=== PATIENT | male | born 1955 | race Caucasian/White ===

== ENCOUNTER 2018-06-04 19:05 | Emergency (ER) | payer OTHER, SELFPAY ==
[2018-06-04 19:06] VITALS: BP 156/86; PULSE 80; RESP 16; TEMP 36.3; O2SAT 98; BMI 27.6
[2018-06-04] MEDS: Tetracaine 0.5% Ophthalmic Bottle 1 DRP LEFT EYE (19:29)
[2018-06-04] MEDS: Fluorescein 1 MG STRIP 1 STRIP LEFT EYE (19:29)
--- NOTE | 2018-06-04 21:18 | ED.DCSUM_ITS ---
- ER Visit Summary Date of Service: 06/04/18 Chief Complaint: Foreign body sensation right eye History of Present Illness: The patient is a [address] Blanco. 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 He cannot describe the pain is 5 out of 10 severity. Is worsened by light. Is relieved by ibuprofen. He does have photophobia and mildly blurred vision. He does wear glasses. He states he has contacts but has not worn them for approximately 1 year. Physical Examination: Vitals: Stable. Afebrile. Right eye: Upper eyelid was everted for the exam there is no foreign material under it. He does have a metallic foreign body at approximately 10:00 on the cornea. There is a rust ring surrounding this. There is forcing dye uptake. No ulcer or Rick sign. There is diffuse conjunctival injection. General: Well-nourished and well-developed. Head: Normocephalic atraumatic. Neck: Supple, no lymphadenopathy. No JVD. Nontender. Cardiovascular: Regular rate and rhythm. No murmurs. Respiratory: No respiratory distress. Clear to auscultation bilaterally. Abdominal: Soft, nontender, nondistended, normal bowel sounds. No guarding, rebound, or peritoneal signs. Back: Nontender. Extremities: Nontender, no edema. Skin: Normal color, no rash. Neurologic: Alert and oriented ?3. Cranial nerves II through XII are intact. Normal strength and sensation. Psych: Normal affect. Emergency Department Course and Treatment: Patient had the metallic foreign body removed with a Q-tip that had been moistened with tetracaine. I discussed with him the options for removal of the rust ring. He would prefer to have an embroiderer hand to this. Treatment Plan: Patient be discharged with instructions to follow-up Dr. Mead within 1-2 days for removal of the rust ring. He will be placed on erythromycin ointment in the interim. Return to the emergency department for any worsening symptoms. Disposition: To home in improved and stable condition. Impression: 1. Metallic foreign body right eye, removed. 2. Retained rust ring. This note was generated with [employer] software. It may contain incorrect words, spelling, and punctuation that were not noted in review of the chart prior to signing ED Disposition - Plan for ED Patient: Disposition: Home or Assisted Living Chief Complaint: Eye Problem Instructions: ED Foreign Body Cornea W Rust Ring Referrals: Jhonatan Mead MD [STAFF PHYSICIAN] - 1 Day for another exam
[2018-06-04] MEDS: Erythromycin Base 1 OPTH.TUBE 1 APPLIC RIGHT EYE (21:25)
== END 2018-06-04 21:26 | disposition home or self-care (01) ==
PROVIDERS: Emergency Provider Emergency Medicine; Family Provider Family Medicine; PCP Family Medicine
DX: T15.01XA Foreign body in cornea, right eye, initial encounter (principal)
CPT/HCPCS: 99282

== ENCOUNTER 2019-12-26 07:59 | Day surgery (SDC) | payer SELFPAY ==
[2019-12-10 08:50] VITALS: BMI 27.6
--- NOTE | 2019-12-10 10:10 | HP_ITS ---
Intake Vital Signs 12/10/19 BMI 27.6 12/10/19 Height 5 ft 11 in 12/10/19 Weight: 195 lb 12/10/19 BMI 27.1 12/10/19 BP 144/89 H 12/10/19 Blood Pressure Location Rt brachial 12/10/19 Position Sitting 12/10/19 Respiration 18 Intake Visit Reasons: Cscope Consult/Constipation Aerosol Line Operator Required: No Is patient in pain?: No Allergies No Known Allergies Allergy (Verified 12/10/19 08:49) Medications methylcellulose (with sugar) 1 tbsp PO DAILY 12/10/19 [History Confirmed 12/10/19] PFSH Family History Mother Heart disease Cancer lung Aunt Heart disease Uncle Heart disease Sister CVA (cerebral vascular accident) Social History (Updated 12/10/19 @ 10:[address] Adiel Ashby MD) Smoking Status: Never smoker alcohol intake: never HPI HPI HPI: CATE BAY, is a 64 M who presents to the office today for HPI HPI Surgical H&P: Yes HPI: CATE BAY, is a 64 M who presents to the office today for colonoscopy. The patient had a colonoscopy about 6 years ago and one polyp was noted in the ascending colon. The patient was recommended to repeat colonoscopy in 5 years. He does have chronic constipation. He is not having any blood in the stool or abdominal pain. ROS General General: No weight change or fatigue Cardio Cardiovascular: No murmur, pacemaker, heart disease, atrial fibrillation, high blood pressure, heart attack, heart stent, palpitations, shortness of breat with exertion or chest pain Psych Psychiatric: No depression or anxiety Resp Respiratory: No shortness of breath, No sleep apnea, No cough, No COPD, No asthma, No emphysema, No wheezing Gastro Gastrointestinal: No abdominal pain, No nausea or vomiting, No diarrhea, Yes constipation, No blood in stool, No acid reflux, No hemorrhoids, No ulcers, No gallbladder problem, No black,tarry stools Ashutosh Hematologic: No blood thinners Exam Const General: cooperative Orientation: alert, oriented x3 Resp Effort & Inspection: normal respiratory effort Auscultation: clear to auscultation bilaterally Cardio Rate: regular rate Rhythm: regular rhythm Heart Sounds: no murmurs GI Inspection: non-distended Palpation: soft, nontender Assessment & Plan Problems 1. History of colon polyps Z86.010 Plan The patient has a history of colon polyp in the ascending colon and was ordered to repeat colonoscopy in 5 years. He is 1 year overdue. Recommend colonoscopy. I explained endoscopy in detail to the patient. I explained the risks including but not limited to stroke or heart attack with anesthesia, perforation of the GI tract, bleeding, infection. I explained that any of these could necessitate further emergency surgery. The patient understands and all questions were answered sufficiently. The patient wishes to proceed with procedure. Adiel Ashby MD Pager: [facility] [address] [place] [address], [address] [place] [address] Office: Orders Orders: Colonoscopy Today Z86.010 Coding Level of Care Code Off vis,new,level 3 Diagnoses History of colon polyps Z86.010 12/10/19 1011 <Electronically signed by Adiel medina MD> Date _ Adiel Ashby MD I have re-examined the patient. There are no clinical changes since date of exam.
[2019-12-26 08:28] VITALS: BP 144/95; PULSE 80; RESP 16; TEMP 36.8; O2SAT 95; BMI 27.6
[2019-12-26] MEDS: Lactated Ringers 1,000 ML 100 ML IV (08:33)
--- NOTE | 2019-12-26 09:15 | OP.COLON_ITS ---
Patient Name: Dwayne Liu Procedure Date: 12/26/2019 8:36 AM Date of : 1955 Age: 64 Procedure: Colonoscopy Indications: Surveillance: Personal history of adenomatous polyps on last colonoscopy > 5 years ago Providers: Adiel Ashby MD Referring MD: Tin Ferreira Md Medicines: Monitored Anesthesia Care Patient Profile: This is a 64 year old male. Refer to note in patient chart for documentation of history and physical. Last Colonoscopy: several years ago. Complications: No immediate complications. Estimated blood loss: Minimal. Procedure: Pre-Anesthesia Assessment: - Prior to the procedure, a History and Physical was performed, and patient medications and allergies were reviewed. The patient's tolerance of previous anesthesia was also reviewed. The risks and benefits of the procedure and the sedation options and risks were discussed with the patient. All questions were answered, and informed consent was obtained. Prior Anticoagulants: The patient has taken no previous anticoagulant or antiplatelet agents. After reviewing the risks and benefits, the patient was deemed in satisfactory condition to undergo the procedure. After I obtained informed consent, the scope was passed under direct vision. Throughout the procedure, the patient's blood pressure, pulse, and oxygen saturations were monitored continuously. The pediatric colonoscope was introduced through the anus and advanced to the cecum, identified by appendiceal orifice and ileocecal valve. The colonoscopy was performed without difficulty. The patient tolerated the procedure well. The quality of the bowel preparation was good. Scope In: 8:51:53 AM Scope Withdrawal Time 0 hours 6 minutes 16 seconds Scope Out: 9:13:14 AM Total Procedure Duration Time 0 hours 21 minutes 21 seconds Findings: The entire examined colon appeared normal on direct and retroflexion views. Impression: - The entire examined colon is normal on direct and retroflexion views. - No specimens collected. Recommendation: - Discharge patient to home. - Resume previous diet. - Continue present medications. - Repeat colonoscopy in 10 years for screening purposes. Procedure Code(s): --- Professional --- 78057, Colonoscopy, flexible; diagnostic, including collection of specimen(s) by brushing or washing, when performed (separate procedure) Diagnosis Code(s): --- Professional --- Z86.010, Personal history of colonic polyps CPT copyright 2017 [employer]. All rights reserved. The codes documented in this report are preliminary and upon pool hall inspector review may be revised to meet current compliance requirements. Adiel Ashby MD 12/26/2019 9:15:31 AM This report has been signed electronically. Number of Addenda: 0 Note Initiated On: 12/26/2019 8:36 AM
--- NOTE | 2019-12-26 09:15 | OP.CCLET_ITS ---
12/26/2019 Tin Ferreira [address] [place] [address] Re : Colonoscopy procedure for Dwayne Liu Dear Dr. Ferreira This procedure was performed on Thursday, December 26, 2019. My impressions and recommendations are as follows: Impressions : - The entire examined colon is normal on direct and retroflexion views. - No specimens collected. Recommendations : - Discharge patient to home. - Resume previous diet. - Continue present medications. - Repeat colonoscopy in 10 years for screening purposes. My findings are described in the full procedure note, which is enclosed. If I can be of further assistance, please feel free to contact me at Doctor phone number(s): , Work: . Sincerely, Adiel Ashby MD 12/26/2019 9:15:31 AM This report has been signed electronically.
[2019-12-26 09:17] VITALS: BP 106/74; BP 144/95; PULSE 72; RESP 16; TEMP 36.2; O2SAT 95
[2019-12-26 09:25] VITALS: BP 113/70; BP 144/95; PULSE 70; RESP 16; O2SAT 97
[2019-12-26 09:30] VITALS: BP 108/83; BP 144/95; PULSE 69; RESP 16; O2SAT 97
[2019-12-26 09:35] VITALS: BP 125/91; BP 144/95; PULSE 70; RESP 16; TEMP 36.3; O2SAT 96
[2019-12-26 10:23] VITALS: BP 144/95
== END 2019-12-26 10:24 | disposition home or self-care (01) ==
LOC: EN 08:03 → AC 08:03
PROVIDERS: PCP Family Medicine; Referring Provider Family Medicine; Visit Provider Surgery
PROC: 0DJD8ZZ Inspection of Lower Intestinal Tract, Via Natural or Artificial Opening Endoscopic (ICD-10-PCS; CPT 45378; principal; 2019-12-26 08:55)
DX: Z12.11 Encounter for screening for malignant neoplasm of colon (principal); Z86.010 Personal history of colon polyps; K59.09 Other constipation
CPT/HCPCS: 45378; J7120; J2405

== ENCOUNTER 2020-09-24 20:02 | Emergency (ER) | payer SELFPAY ==
[2020-09-24 20:03] VITALS: BP 131/83; PULSE 73; RESP 18; TEMP 36.1; O2SAT 98; BMI 26.6
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
[2020-09-24 22:10] VITALS: BP 128/74; PULSE 74; RESP 16; O2SAT 97
== END 2020-09-24 22:10 | disposition home or self-care (01) ==
PROVIDERS: Emergency Provider Emergency Medicine; PCP Family Medicine
DX: S49.82XA Other specified injuries of left shoulder and upper arm, initial encounter (principal); Y93.55 Activity, bike riding
CPT/HCPCS: 73030; 99282

== ENCOUNTER → 2021-06-06 14:31 | Outpatient (CLI) | payer MEDICARE, SELFPAY ==
--- NOTE | 2021-06-06 14:34 | RAD_ITS ---
EXAM DESCRIPTION: PA and lateral CHEST CLINICAL HISTORY: 66 years Male, cough blood tinged cough blood tinged COMPARISON: None FINDINGS: The thorax is intact. The heart and mediastinum appear to be within normal limits. The lungs appear to be well areated without evidence of pneumonic consolidation or pleural effusion. RAD/Chest PA and Lateral IMPRESSION: Normal PA and lateral chest Electronically Signed: Polo Caputo DO at 15:04 EDT Tel , Service support ,
== END ==
PROVIDERS: PCP Family Medicine; Referring Provider Family Medicine; Visit Provider Family Medicine
DX: J01.90 Acute sinusitis, unspecified (principal)
CPT/HCPCS: 71046

== ENCOUNTER → 2022-08-15 | Outpatient (CLI) | payer MEDICARE, SELFPAY ==
[2022-08-15 10:26] LABS: Anion Gap 6 (5-15); BUN 18 mg/dL (7-18); BUN/Creat Ratio 20.8 RATIO (10-20); Chloride 109 mmol/L (98-107); Cholesterol 217 mg/dL (200); Creatinine, Serum 0.86 mg/dL (0.70-1.30); EST Glomerular Filtration Rate 94 mL/min (>60); Est Glom Filt Rate - Afr Amer 114 mL/min (>60); Glucose 91 mg/dL (74-106); High Density Lipoprotein 48 mg/dL; Sodium Level 142 mmol/L (136-145); Triglycerides 176 mg/dL
[2022-08-15 10:27] LABS: PSA,Total - Annual Screen 1.61 ng/mL (0.00-4.00); Very Low Density Lipoprotein 35 mg/dL (5-40)
== END | disposition home or self-care (01) ==
LOC: MFPLAB 09:06
PROVIDERS: PCP Family Medicine; Referring Provider Family Medicine; Visit Provider Family Medicine
DX: Z13.1 Encounter for screening for diabetes mellitus (principal); Z13.220 Encounter for screening for lipoid disorders; Z12.5 Encounter for screening for malignant neoplasm of prostate
CPT/HCPCS: 36415; 80048; 80061; 84153; G0103

== ENCOUNTER 2023-05-06 08:36 | Emergency (ER) | payer MEDICARE, SELFPAY ==
[2023-05-06 08:37] VITALS: BP 153/89; PULSE 84; RESP 14; TEMP 37.1; O2SAT 93; BMI 28.6
--- NOTE | 2023-05-06 09:04 | EX.ED.GUMALE ---
HPI History of Present Illness Chief Complaint: Complaint Detail of Chief Complaint: Difficulty urinating last couple days. No pain. Informant: patient Pain Onset: Days Context: Gradual Onset Timing: Intermittent Current Severity: Mild Maximum Severity: Mild Narrative Narrative: 68-year-old male no stated past medical history. No prior or bladder surgery. States last couple days had difficulty urinating. Denies pain. Denies dysuria. Denies gross blood. No fever. No abdominal pain. Just states he did not feel like he is emptying his bladder. Has trouble starting his stream. He has never had prostate issues in the past. He is able to urinate. H is more difficult. Prior similar symptoms: No Recent Illness/Hospitalization: No PFSH PFSH Medical History no medical history no medical history Home Medications docusate sodium 100 mg capsule 100 mg PO DAILY #20 caps 09/24/20 [Rx Last Taken Unknown] docusate sodium 100 mg capsule 100 mg PO DAILY #20 caps 09/24/20 [Rx Last Taken Unknown] ciprofloxacin HCl 500 mg tablet (Cipro) 500 mg PO BID 10 days #20 tabs 05/06/23 [Rx Last Taken Unknown] tamsulosin 0.4 mg capsule (Flomax) 0.4 mg PO DAILY 30 days #30 caps 05/06/23 [Rx Last Taken Unknown] Allergy/AdvReac Type Severity Reaction Status Date / Time No Known Allergies Allergy Verified 05/06/23 08:37 Family History Mother Heart disease Cancer lung Aunt Heart disease Uncle Heart disease Sister CVA (cerebral vascular accident) Social History Smoking Status: Never smoker alcohol intake: never ROS ROS ED ROS Narrative Difficulty urinating. Review of Systems ROS Unobtainable: Denies due to encephalopathy Constitutional Constitutional ED: Denies chills or fever(s) Eyes Eyes: Denies blurry vision ENT ENT ED: Denies ear pain Cardiovascular Cardiovascular: Denies chest pain Respiratory/Chest Respiratory/Chest: Denies cough or dyspnea Gastrointestinal Gastrointestinal: Denies abdominal pain, constipation, diarrhea, melena, nausea or vomiting Genitourinary Genitourinary ED: Reports urinary frequency; Denies dysuria or hematuria Musculoskeletal Musculoskeletal: Denies arthralgias Integumentary Denies abscess Psychiatric Psychiatric: Denies anxiety Endocrine Endocrinology: Denies polydipsia Hematologic/Lymphatic Hematologic/Lymphatic: Denies easy bleeding or easy bruising Allergic/Immunologic Allergic/Immunologic ED: Denies mouth swelling or tongue swelling EXAM Physical Exam Narrative Exam Narrative: 61-year-old male no acute distress. Vital signs stable afebrile. H EENT exam unremarkable. Neck nontender no lymphadenopathy. Lungs clear to auscultation bilaterally. Heart regular rhythm no murmur. Abdomen soft nontender, nondistended normal bowel sounds no peritoneal signs. No suprapubic tenderness. Extremities moves all 4. Nontender no edema. Back nontender. Neurologically is awake and alert with no focal motor deficits. Const Vital Signs: 05/06/23 08:37 Temperature 98.7 F Temperature Source Temporal Pulse Rate 84 Respiratory Rate 14 Blood Pressure 153/89 H Blood Pressure Mean 110 Pulse Ox 93 Oxygen Delivery Method Room Air Positive well nourished and well developed; Negative for obese, cachectic, contractures or unkempt General Appearance ED: well developed and NAD; Negative for unkempt, cachectic, contractures or pallor Nutritional Appearance: Negative for cachectic or obese HEENT Reports moist mucous membranes; Denies dry mucous membranes normocephalic and atraumatic; Negative for trauma or tenderness Mouth ED: No dry mucous membranes Mouth: No dry mucous membranes Eyes PERRL and EOMs intact bilaterally General Eye ED: Negative for pale conjunctiva, scleral icterus or other Neck no lymphadenopathy, supple and no JVD General: Negative for tenderness Resp normal respiratory effort and clear to auscultation bilaterally Effort and Inspection: Negative for retractions Auscultation: Negative for rales, rhonchi or wheezes Cardio regular rate, regular rhythm, S1 normal heart sound, S2 normal heart sound and no murmurs Rate: Negative for bradycardia or tachycardic Rhythm: Negative for abnormal rhythm Heart Sounds: Negative for other GI non-tender, non-distended and no masses Inspection: Negative for abdominal distention Auscultation: normoactive bowel sounds Palpation: soft; Negative for tender or guarding no CVA tenderness Bladder / Kidney Exam: No CVA tenderness Back/Spine no CVA tenderness General Back: Negative for CVA tenderness Cervical Spine: Negative for cervical spine tenderness Thoracic Spine / Upper Back: Negative for thoracic spinal tenderness Lumbar Spine / Lower Back: Negative for lumbar spinal tenderness Extremity normal to inspection General Extremety ED: Negative for edema or pulses abnormal General Extremity: Negative for edema or pulses abnormal Neuro oriented x3, CN's II-XII intact bilaterally, moves all extremities and no focal motor deficits Sensorium / Orientation: alert, oriented to person, oriented to place and oriented to time; Negative for orientation impaired, confused or lethargic Motor Exam: strength 5/5 throughout Psych mental status grossly normal Appearance: Negative for unkempt Attitude: No agitated Mood & Affect: Negative for depressed Thought Process: normal thought process Thought Content: normal thought content Attention / Concentration: Negative for other Skin General Skin Exam: Negative for jaundice or pallor Lesions: no lesions Rashes: no rashes Trauma: Negative for abrasion or laceration MDM MDM MDM Narrative Medical decision making narrative: 68-year-old male with difficulty urinating. There is a urine sample on the counter is clean. It does not look bloody or cloudy. This is most likely secondary to enlarged prostate. Nurses will do a bladder scan we will send a urinalysis. Otherwise his exam is benign. Patient may have a UTI with white cells and bacteria on her urine. A culture will be sent. To be started on Cipro 500 twice daily for 10 days. Also be started on Flomax for suspected enlarged prostate and follow-up with urology. History & Record Review Discussion w/independent historian: Patient Lab Data Attestation: I reviewed the patient's lab results. Lab results narrative: Urinalysis shows no nitrates 10-25 white cells no red cells 1+ bacteria culture will be sent. Will be treated for possible UTI with Cipro. Bladder scan was only 179. Labs: Laboratory Results - last 24 hr 05/06/23 08:45 Urine Color Yellow Urine Clarity Clear Urine pH 6.5 Ur Specific [place] 1.010 Urine Protein Negative Urine Glucose (UA) Normal Urine Ketones Negative Urine Occult Blood 10 H Urine Nitrite Negative Urine Bilirubin Negative Urine Urobilinogen Normal Ur Leukocyte Esterase 500 H Urine RBC 0 SEEN Urine WBC 10-25 SEEN Ur Squamous Epith Cells 0 SEEN Urine Bacteria 1+ Urine Mucus 0 SEEN Discharge Plan Triage Chief Complaint: Complaint ED Provider: Jose Richter Dx/Rx/DC Orders Clinical Impression: Benign enlargement of prostate, Acute UTI Instructions: Benign Prostatic Hyperplasia, ED Urinary Tract Infections in Men Prescriptions: New tamsulosin [Flomax] 0.4 mg capsule 0.4 mg PO DAILY 30 Days Qty: 30 0RF ciprofloxacin HCl [Cipro] 500 mg tablet 500 mg PO BID 10 Days Qty: 20 0RF No Action docusate sodium 100 MG capsule 100 mg PO DAILY Qty: 20 0RF docusate sodium 100 MG capsule 100 mg PO DAILY Qty: 20 0RF Primary Care Provider: Tin Ferreira Referrals: Tin Ferreira MD [Primary Care Provider] - 1 Week if not improving Michael Steel MD [Med Staff - Active Staff] - 1 Week if not improving Activity Restrictions/Additional Instructions: Flomax daily I would take in the evening before you go to bed for possibly an suspect enlarged prostate. Cipro 1 pill twice a day for 10 days for suspected urinary tract infection. A urine culture was sent. Call and follow-up with your doctor or the urologist. Return if unable to urinate urinate Disposition Disposition: Home, Self Care
[2023-05-06 09:45] LABS: Mucous, Urine 0 SEEN /hpf (<or=2+); Red Blood Cells-Urine 0 SEEN /hpf (0-5); Squamous Epithelial Cells - UA 0 SEEN /hpf (0-5)
[2023-05-06 10:21] LABS: Color, Urine Yellow (Yellow); Glucose, Dipstick Normal (Normal); Ketone-Dipstick Negative (Negative); Leukocyte Esterase-Dipstick 500 /ul (Negative); Nitrite-Dipstick Negative (Negative); Occult Blood-Urine 10 /ul (Negative); Protein-Dipstick Negative (Negative); Urine Bilirubin Dipstick Negative (Negative); Urine Clarity Clear (Clear); Urine Urobilinogen Normal (Normal); Urine pH 6.5 (5.0 - 8.0)
[2023-05-06 10:36] LABS: Bacteria 1+ /hpf (None Seen); White Blood Cells 10-25 SEEN /hpf (0-5)
[2023-05-06] MEDS: Ciprofloxacin 500 MG Tablet PO (11:13)
[2023-05-06 11:14] VITALS: BP 119/87; PULSE 72; RESP 16; O2SAT 98
== END 2023-05-06 12:05 | disposition home or self-care (01) ==
PROVIDERS: Emergency Provider Emergency Medicine; PCP Family Medicine; Visit Provider Emergency Medicine
DX: N40.1 Benign prostatic hyperplasia with lower urinary tract symptoms (principal); N39.0 Urinary tract infection, site not specified
CPT/HCPCS: 81001; 87077; 87086; 87088; 87186; 99283

== ENCOUNTER 2023-05-08 07:57 | Emergency (ER) | payer MEDICARE, SELFPAY ==
[2023-05-08 07:58] VITALS: BP 165/101; PULSE 99; RESP 14; TEMP 36; O2SAT 96; BMI 28.2
--- NOTE | 2023-05-08 08:19 | EX.ED.DYSGE1 ---
HPI History of Present Illness Chief Complaint: Lyle C/O Informant: patient Onset/Context/Timing Onset: Weeks (2) Context: Gradual Onset Timing: Continuous Quality: Pressure Location: Suprapubic Worsened by: Nothing Relieved by: Nothing Narrative Narrative: Patient presents with urinary retention that became worse today. Patient states she has been having some symptoms over the past 2 weeks that have gradually gotten worse. Patient states he is only able to urinate small amounts this morning. Patient states that he had to stand to be able to urinate a small amount. Patient states he has urinary urgency. Patient also admits to some dysuria. Patient denies any hematuria. Patient was seen here recently and was started on Cipro and tamsulosin. Patient has been taking those as prescribed. PFSH PFSH Medical History no medical history no medical history Home Medications docusate sodium 100 mg capsule 100 mg PO DAILY #20 caps 09/24/20 [Rx Last Taken Unknown] docusate sodium 100 mg capsule 100 mg PO DAILY #20 caps 09/24/20 [Rx Last Taken Unknown] ciprofloxacin HCl 500 mg tablet (Cipro) 500 mg PO BID 10 days #20 tabs 05/06/23 [Rx Last Taken Unknown] tamsulosin 0.4 mg capsule (Flomax) 0.4 mg PO DAILY 30 days #30 caps 05/06/23 [Rx Last Taken Unknown] Allergy/AdvReac Type Severity Reaction Status Date / Time No Known Allergies Allergy Verified 05/08/23 07:59 Family History Mother Heart disease Cancer lung Aunt Heart disease Uncle Heart disease Sister CVA (cerebral vascular accident) Surgical History no surgical history no surgical history Social History Smoking Status: Never smoker alcohol intake: never ROS ROS ED Constitutional Constitutional ED: Denies chills or fever(s) Eyes Eyes: Denies blurry vision or change in vision ENT ENT ED: Denies rhinorrhea or sore throat Cardiovascular Cardiovascular: Denies chest pain or palpitations Respiratory/Chest Respiratory/Chest: Denies cough or dyspnea Gastrointestinal Gastrointestinal: Denies nausea or vomiting Genitourinary Genitourinary ED: Reports dysuria; Denies hematuria Musculoskeletal Musculoskeletal: Denies back pain or neck pain Integumentary Denies abscess or rash Neurologic Neurologic: Denies headache(s) or weakness Allergic/Immunologic Allergic/Immunologic ED: Denies mouth swelling or urticaria EXAM Physical Exam Const Vital Signs: 05/08/23 07:58 Temperature 96.8 F L Temperature Source Temporal Pulse Rate 99 Respiratory Rate 14 Blood Pressure 165/101 H Blood Pressure Mean 122 Pulse Ox 96 Oxygen Delivery Method Room Air Positive well nourished and well developed General Appearance ED: well developed and NAD HEENT Reports moist mucous membranes Neck supple and no JVD Resp normal respiratory effort and clear to auscultation bilaterally Cardio regular rate and regular rhythm GI non-tender and non-distended Palpation: soft Neuro oriented x3, CN's II-XII intact bilaterally and no sensory deficits noted Sensorium / Orientation: alert Motor Exam: strength 5/5 throughout MDM MDM MDM Narrative Medical decision making narrative: Differential diagnosis includes urinary retention, prostatitis, and urinary tract infection. Patient is currently on Cipro which would cover urinary tract infection and prostatitis. Urine culture from 05/06/23 was reviewed. Preliminary results show gram-positive cocci, possible Enterococcus. There is no sensitivities reported yet. Since Cipro typically covers Enterococcus, I will not change his antibiotic at this time. Patient is agreeable to a Lyle catheter with a leg bag. Patient was given catheter care instructions. Patient was instructed to continue Cipro and Flomax as previously prescribed. Patient was instructed to follow-up with his primary care physician in 2 days for reevaluation and catheter removal. Patient was also given a urology referral. Patient understood and was agreeable with the plan. All questions were answered. Discharge Plan Triage Chief Complaint: Lyle C/O ED Provider: Anatoly Moncada Dx/Rx/DC Orders Clinical Impression: Benign enlargement of prostate, Acute urinary retention Instructions: ED Lyle Catheter, Care, ED Urinary Retention, Male Prescriptions: No Action docusate sodium 100 MG capsule 100 mg PO DAILY Qty: 20 0RF docusate sodium 100 MG capsule 100 mg PO DAILY Qty: 20 0RF tamsulosin [Flomax] 0.4 mg capsule 0.4 mg PO DAILY 30 Days Qty: 30 0RF ciprofloxacin HCl [Cipro] 500 mg tablet 500 mg PO BID 10 Days Qty: 20 0RF Primary Care Provider: Tin Ferreira Referrals: Tin Ferreira MD [Primary Care Provider] - 2 Days Michael Steel MD [Med Staff - Active Staff] - 2 Days Disposition Disposition: Home, Self Care
[2023-05-08 09:00] VITALS: BP 134/69; PULSE 72; RESP 15; O2SAT 96
== END 2023-05-08 09:01 | disposition home or self-care (01) ==
PROVIDERS: Emergency Provider Emergency Medicine; PCP Family Medicine; Visit Provider Emergency Medicine
DX: N40.1 Benign prostatic hyperplasia with lower urinary tract symptoms (principal); R33.8 Other retention of urine
CPT/HCPCS: 51702; 99283

== ENCOUNTER → 2024-07-10 | Outpatient (CLI) | payer MEDICARE, SELFPAY ==
[2024-07-10 12:33] LABS: Anion Gap 4 (5-15); BUN 14 mg/dL (7-18); BUN/Creat Ratio 14.5 RATIO (10-20); Calcium,Total 9.1 mg/dL (8.5-10.1); Chloride 108 mmol/L (98-107); Cholesterol 183 mg/dL (200); Creatinine, Serum 0.97 mg/dL (0.70-1.30); EST Glomerular Filtration Rate 82 mL/min (>60); Est Glom Filt Rate - Afr Amer 99 mL/min (>60); Glucose 113 mg/dL (74-106); High Density Lipoprotein 40 mg/dL; PSA,Total - Annual Screen 3.72 ng/mL (0.00-4.00); Potassium 4.3 mmol/L (3.5-5.1); Sodium Level 139 mmol/L (136-145); Triglycerides 194 mg/dL; Very Low Density Lipoprotein 39 mg/dL (5-40)
== END | disposition home or self-care (01) ==
LOC: MFPLAB 09:48
PROVIDERS: PCP Family Medicine; Visit Provider Family Medicine
DX: Z13.220 Encounter for screening for lipoid disorders (principal); Z12.5 Encounter for screening for malignant neoplasm of prostate
CPT/HCPCS: 36415; 80048; 80061; 84153; G0103

== ENCOUNTER → 2025-08-14 | Outpatient (CLI) | payer MEDICARE, SELFPAY ==
[2025-08-14 12:42] LABS: Anion Gap 11 (5-15); BUN 19 mg/dL (4-19); BUN/Creat Ratio 21.3 RATIO (10-20); Calcium,Total 9.3 mg/dL (7.6-11.0); Carbon Dioxide 23.7 mmol/L (21.0-32.0); Chloride 104 mmol/L (98-108); Cholesterol 237 mg/dL (<=200); Glucose 88 mg/dL (70-99); Low Density Lipoprotein Calc. 148 mg/dL; PSA,Total - Annual Screen 3.58 ng/mL (0.02-4.00); Potassium 4.3 mmol/L (3.3-5.1); Triglycerides 187 mg/dL; Very Low Density Lipoprotein 37 mg/dL (5-40); cholesterol:hdl ratio screen 4.57
== END | disposition home or self-care (01) ==
LOC: MFPLAB 09:37
PROVIDERS: PCP Family Medicine; Visit Provider Family Medicine
DX: N40.0 Benign prostatic hyperplasia without lower urinary tract symptoms (principal); Z13.1 Encounter for screening for diabetes mellitus; Z13.220 Encounter for screening for lipoid disorders; Z12.5 Encounter for screening for malignant neoplasm of prostate
CPT/HCPCS: 36415; 80048; 80061; 84153; G0103